=== PATIENT | male | born 1990 | race Caucasian/White ===

== ENCOUNTER 2019-03-29 22:40 | Emergency (ER) | payer MEDICAID ==
[~2019-03-29] VITALS: Ht 193 cm; Wt 81.8 kg
[2019-03-29] MEDS ORDERED: CYCL-1 PO (23:35)
[2019-03-29] MEDS ORDERED: ketorolac trometh inj. 60 MG/2 ML VIAL IM ONE (23:35)
[2019-03-29] MEDS ORDERED: IBUP-1984 PO (23:35)
[2019-03-29 23:53] VITALS: BP 138/87
== END 2019-03-29 23:57 | disposition home or self-care (01) ==
LOC: ER 22:42
DX: M54.6 Pain in thoracic spine (principal); G89.29 Other chronic pain; M62.830 Muscle spasm of back; F17.200 Nicotine dependence, unspecified, uncomplicated; F12.90 Cannabis use, unspecified, uncomplicated
CPT/HCPCS: 96372; 99283; J1885

== ENCOUNTER 2019-12-18 12:20 | Emergency (ER) | payer MEDICAID ==
[~2019-12-18] VITALS: Ht 193 cm; Wt 77.0 kg
[~2019-12-18 12:20] MED LIST: CYCL-1 PO
[2019-12-18 12:34] VITALS: BP 115/75
--- NOTE | 2019-12-18 12:34 | NUR ---
Q15 min observation started.We will monitor.
[2019-12-18 13:01] LABS: BASOPHILS # (AUTO) 0.1 X10'3 (0-0.2); BASOPHILS % (AUTO) 0.7 % (0-1); EOSINOPHILS # (AUTO) 0.4 X10'3 (0-0.9); EOSINOPHILS % (AUTO) 3.2 % (0-6); HEMATOCRIT 43.5 % (42.0-52.0); HEMOGLOBIN 14.5 g/dl (14.0-17.9); LYMPHOCYTES # (AUTO) 2.3 X10'3 (1.1-4.8); MEAN CORPUSCULAR HEMOGLOBIN 28.4 PG (27.0-31.0); MEAN CORPUSCULAR HGB CONC 33.3 g/dL (33.0-36.5); MEAN CORPUSCULAR VOLUME 85.2 FL (78-98); MEAN PLATELET VOLUME 8.8 FL (7.4-10.4); MONOCYTES % (AUTO) 8.5 % (2-12); NEUTROPHILS # (AUTO) 7.8 X10'3 (1.8-7.7); NEUTROPHILS % (AUTO) 67.6 % (42-75); PLATELET COUNT 301 X10'3 (140-440); RED BLOOD COUNT 5.11 X10'6 (4.70-6.10); RED CELL DISTRIBUTION WIDTH 14.3 % (11.5-14.5); WHITE BLOOD COUNT 11.5 X10'3 (4.5-11.0)
--- NOTE | 2019-12-18 13:10 | NUR ---
lunch provided.patient cooperative.
[2019-12-18 13:16] LABS: ALANINE AMINOTRANSFERASE 35 U/L (12-78); ALBUMIN 3.6 G/DL (3.4-5.0); ALBUMIN/GLOBULIN RATIO 0.9 (1.1-1.5); ALKALINE PHOSPHATASE 73 IU/L (46-116); ANION GAP 5 (8-16); ASPARTATE AMINO TRANSFERASE 23 U/L (10-37); BILIRUBIN,TOTAL 0.5 MG/DL (0.1-1.0); BLOOD UREA NITROGEN 19 MG/DL (7-18); BUN/CREATININE RATIO 14.7 (5.4-32.0); CALCIUM 9.1 MG/DL (8.5-10.1); CHLORIDE 104 MMOL/L (99-107); CREATININE 1.29 MG/DL (0.60-1.10); GLUCOSE 95 MG/DL (70-104); SODIUM 139 MMOL/L (135-145); TOTAL CARBON DIOXIDE 29.7 MMOL/L (24-32); TOTAL PROTEIN 7.6 G/DL (6.4-8.2); eGFR 66 ML/MIN
[2019-12-18 13:25] LABS: ETHANOL < 0.010 GM/DL (0.0-0.010)
[2019-12-18 13:31] LABS: URINE AMPHETAMINE SCREEN POSITIVE (Neg); URINE BARBITUATE SCREEN NEGATIVE (Neg); URINE BENZODIAZEPINES SCREEN NEGATIVE (Neg); URINE CANNABINOID SCREEN POSITIVE (Neg); URINE COCAINE SCREEN NEGATIVE (Neg); URINE METHADONE SCREEN NEGATIVE (Neg); URINE OPIATE SCREEN NEGATIVE (Neg); URINE PHENCYCLIDINE SCREEN NEGATIVE (Neg)
--- NOTE | 2019-12-18 13:36 | NUR ---
PACKET FAXED TO [facility]
--- NOTE | 2019-12-18 14:19 | NUR ---
pt sleeping quietly at this time.
[2019-12-18 14:48] LABS: CLARITY,URINE CLOUDY (Clear); COLOR,URINE YELLOW (Yellow); GLUCOSE, URINE NEGATIVE (Neg); KETONES,URINE NEGATIVE (Neg); LEUKOCYTE ESTERASE ,URINE NEGATIVE (Neg); NITRITES, URINE NEGATIVE (Neg); OCCULT BLOOD,URINE NEGATIVE (Neg); PH,URINE 5.5 (4.8-8.0); PROTEIN,URINE NEGATIVE (Neg)
[2019-12-18 14:51] LABS: UA COLLECTION TYPE CLN CATCH MIDSTREAM
[2019-12-18 14:53] LABS: AMORPHOUS URATES 4+; BACTERIA,URINE NONE SEEN /HPF (Neg); MUCUS STRANDS NONE SEEN /LPF (Neg); RBC,URINE NONE SEEN /HPF (0-2); SQUAMOUS EPITHELIAL CELL,UR FEW /LPF (FEW); WBC,URINE NONE SEEN /HPF (0-4)
--- NOTE | 2019-12-18 18:03 | NUR ---
[facility] SHOULD ARRIVE HERE AT 1900 - 193
--- NOTE | 2019-12-18 18:43 | NUR ---
Pt eating dinner.
== END 2019-12-18 19:14 | disposition home or self-care (01) ==
LOC: ER 12:21
DX: F32.9 Major depressive disorder, single episode, unspecified (principal); E05.90 Thyrotoxicosis, unspecified without thyrotoxic crisis or storm; G89.29 Other chronic pain; F12.90 Cannabis use, unspecified, uncomplicated; F15.90 Other stimulant use, unspecified, uncomplicated; Z79.899 Other long term (current) drug therapy
CPT/HCPCS: 36415; 80053; 80305; 80320; 81001; 84443; 85025; 99283

== ENCOUNTER 2021-10-11 13:08 | Emergency (ER) | payer MEDICAID ==
[~2021-10-11] VITALS: Ht 193 cm; Wt 77.3 kg
[2021-10-11 13:10] VITALS: BP 129/79
[2021-10-11] MEDS ORDERED: AMOX500C2 PO (14:21)
== END 2021-10-11 14:27 | disposition home or self-care (01) ==
LOC: ER 13:09
DX: K08.89 Other specified disorders of teeth and supporting structures (principal); R22.0 Localized swelling, mass and lump, head; F12.10 Cannabis abuse, uncomplicated; F15.10 Other stimulant abuse, uncomplicated; G89.29 Other chronic pain; Z79.899 Other long term (current) drug therapy
CPT/HCPCS: 99283